=== PATIENT | female | born 1965 | race Hispanic/Latino ===

== ENCOUNTER 2020-06-26 12:10 | Emergency (ER) | payer BC, OTHER | END 2020-06-26 12:39 | disposition home or self-care (01) | LOC: EDH 12:10 | DX: F41.9 Anxiety disorder, unspecified (principal); Z20.828 Contact with and (suspected) exposure to other viral communicable diseases; E11.9 Type 2 diabetes mellitus without complications; I10 Essential (primary) hypertension; Z90.49 Acquired absence of other specified parts of digestive tract; Z72.0 Tobacco use | CPT/HCPCS: 99281 ==